=== PATIENT | female | born 1965 | race Asian ===

== ENCOUNTER → 2024-03-02 | Outpatient (REF) | payer MEDICARE | LOC: US 07:56 | PROVIDERS: ATTEND Student in an Organized Health Care Education/Training Program | DX: Z12.31 Encounter for screening mammogram for malignant neoplasm of breast (principal); M25.562 Pain in left knee; M25.561 Pain in right knee; D25.9 Leiomyoma of uterus, unspecified; Z96.651 Presence of right artificial knee joint | CPT/HCPCS: 76830; 76856; 77067 ==